=== PATIENT | male | born 1930 | race Caucasian/White ===

== ENCOUNTER 2019-07-20 15:43 | Emergency (ER) | payer MEDICARE ==
[~2019-07-20 15:43] MED LIST: HUMAN PROTHROMBIN COMPLX 500 UNIT/16 ML VIAL IV ONE
[2019-07-20] MEDS ORDERED: DIPH,PERTUS(ACELL)TETVAC-LF 0.5 ML VIAL IM ONE (15:49)
[2019-07-20] MEDS ORDERED: SODIUM CHLORIDE 0.9% 500 ML 500 ML IV STA (15:49)
--- NOTE | 2019-07-20 15:59 | ED ---
General Adult HPI - General Stated complaint: Fall Time Seen by Provider: 07/20/19 15:43 Source: patient, RN notes reviewed, old records reviewed - History of Present Illness Initial comments: This is an 88-year-old male who presents emergency Department patient is on Coumadin. Patient was coming out of a building and fell down 3 steps and hit his head on the cement pillar. Patient states he murmurs, have a building in the next he knows people were around him so it does seem as though the patient has lost consciousness. Patient complains of a mild headache at this time he denies any neck pain but he is in a c-collar. EMS stated there was about a 4 inch laceration to the scalp with quite a bit of bleeding. Patient states there is a little bit of rib pain on the lateral left rib cage at about ribs 8 and 9. Patient denies any difficulty breathing first breath per patient denies any back pain. Patient has any abdominal pain. Patient denies any extremity pain. - Related Data Allergies Allergy/AdvReac Type Severity Reaction Status Date / Time No Known Allergies Allergy Verified 07/20/19 16:33 Review of Systems ROS Statement: Those systems with pertinent positive or pertinent negative responses have been documented in the HPI. ROS Other: All systems not noted in ROS Statement are negative. General Exam - General Exam Comments Initial Comments: GENERAL: Patient is well-developed and well-nourished. Patient is nontoxic and well- hydrated and is in mild distress. ENT: Neck is soft and supple. No significant lymphadenopathy is noted. Oropharynx is clear. Moist mucous membranes. Neck has full range of motion without eliciting any pain. EYES: The sclera were anicteric and conjunctiva were pink and moist. Extraocular movements were intact and pupils were equal round and reactive to light. Eyelids were unremarkable. PULMONARY: Unlabored respirations. Good breath sounds bilaterally. No audible rales rhonchi or wheezing was noted. CARDIOVASCULAR: There is a regular rate and rhythm without any murmurs gallops or rubs. ABDOMEN: Soft and nontender with normal bowel sounds. SKIN: Skin is clear with no lesions or rashes and otherwise unremarkable. NEUROLOGIC: Patient is alert and oriented x3. Cranial nerves II through XII are grossly intact. Motor and sensory are also intact. Normal speech, volume and content. Symmetrical smile. MUSCULOSKELETAL: Normal extremities with adequate strength and full range of motion. No lower extremity swelling or edema. No calf tenderness. LYMPHATICS: No significant lymphadenopathy is noted PSYCHIATRIC: Normal psychiatric evaluation. Medical Decision Making - Medical Decision Making EKG shows atrial fibrillation with occasional PVC at 86 bpm QRS is 160 QT interval 442 QTC is 528. Patient's right bundle chino block. Computed tomography scan shows a subarachnoid hemorrhage as well as a contusion temporal lobe which appears to have some hemorrhagic component to it. Patient also has 2 areas of small pneumocephalus without any significant fracture noted. There is no midline shift. CT of the C-spine shows no acute fracture. Portable chest x-ray shows no abnormality. Portable pelvis shows no acute abnormality. I spoke to [facility] emergency Department accepted the transfer I transfer the patient. - Lab Data Result diagrams: 07/20/19 16:08 07/20/19 16:08 Lab Results 07/20/19 07/20/19 07/20/19 Range/Units 15:55 16:02 16:08 WBC 10.4 (3.8-10.6) k/uL RBC 4.79 (4.30-5.90) m/uL Hgb 13.8 (13.0-17.5) gm/dL Hct 43.4 (39.0-53.0) % MCV 90.6 (80.0-100.0) fL MCH 28.8 (25.0-35.0) pg MCHC 31.8 (31.0-37.0) g/dL RDW 13.6 (11.5-15.5) % Plt Count 243 (150-450) k/uL Neutrophils % 63 % Lymphocytes % 27 % Monocytes % 6 % Eosinophils % 2 % Basophils % 0 % Neutrophils # 6.6 (1.3-7.7) k/uL Lymphocytes # 2.7 (1.0-4.8) k/uL Monocytes # 0.6 (0-1.0) k/uL Eosinophils # 0.2 (0-0.7) k/uL Basophils # 0.0 (0-0.2) k/uL Sodium (137-145) mmol/L Potassium (3.5-5.1) mmol/L Chloride (98-107) mmol/L Carbon Dioxide (22-30) mmol/L Anion Gap mmol/L BUN (9-20) mg/dL Creatinine (0.66-1.25) mg/dL Est GFR (CKD-EPI)AfAm (>60 ml/min/1.73 sqM) Est GFR (CKD-EPI)NonAf (>60 ml/min/1.73 sqM) Glucose (74-99) mg/dL POC Glucose (mg/dL) 132 H (75-99) mg/dL POC Glu [employer] Grower ID Arron Jenkins Plasma Lactic Acid Gregg (0.7-2.0) mmol/L Calcium (8.4-10.2) mg/dL Total Bilirubin (0.2-1.3) mg/dL AST (17-59) U/L ALT (4-49) U/L Alkaline Phosphatase (38-126) U/L Total Creatine Kinase (55-170) U/L Total Protein (6.3-8.2) g/dL Albumin (3.5-5.0) g/dL Amylase (30-110) U/L Lipase (23-300) U/L Serum Alcohol mg/dL Blood Type Recheck No Previous Record Bld Type Recheck Status CABO Indicated Spec Expiration Date 07/23/2019 - 230707/20/19 07/20/19 07/20/19 Range/Units 16:08 16:08 16:08 WBC (3.8-10.6) k/uL RBC (4.30-5.90) m/uL Hgb (13.0-17.5) gm/dL Hct (39.0-53.0) % MCV (80.0-100.0) fL MCH (25.0-35.0) pg MCHC (31.0-37.0) g/dL RDW (11.5-15.5) % Plt Count (150-450) k/uL Neutrophils % % Lymphocytes % % Monocytes % % Eosinophils % % Basophils % % Neutrophils # (1.3-7.7) k/uL Lymphocytes # (1.0-4.8) k/uL Monocytes # (0-1.0) k/uL Eosinophils # (0-0.7) k/uL Basophils # (0-0.2) k/uL Sodium 138 (137-145) mmol/L Potassium 3.8 (3.5-5.1) mmol/L Chloride 102 (98-107) mmol/L Carbon Dioxide 26 (22-30) mmol/L Anion Gap 10 mmol/L BUN 22 H (9-20) mg/dL Creatinine 0.57 L (0.66-1.25) mg/dL Est GFR (CKD-EPI)AfAm >90 (>60 ml/min/1.73 sqM) Est GFR (CKD-EPI)NonAf >90 (>60 ml/min/1.73 sqM) Glucose 116 H (74-99) mg/dL POC Glucose (mg/dL) (75-99) mg/dL POC Glu [employer]drop[employer] Grower ID Plasma Lactic Acid Gregg 2.0 (0.7-2.0) mmol/L Calcium 9.7 (8.4-10.2) mg/dL Total Bilirubin 3.2 H (0.2-1.3) mg/dL AST 31 (17-59) U/L ALT 14 (4-49) U/L Alkaline Phosphatase 86 (38-126) U/L Total Creatine Kinase 57 (55-170) U/L Total Protein 7.4 (6.3-8.2) g/dL Albumin 4.5 (3.5-5.0) g/dL Amylase 63 (30-110) U/L Lipase 96 (23-300) U/L Serum Alcohol <10 mg/dL Blood Type Recheck Bld Type Recheck Status Spec Expiration Date Critical Care Time Critical Care Time: Yes Total Critical Care Time: 35 Disposition Clinical Impression: Subarachnoid hemorrhage, Intracerebral hemorrhage, Pneumocephalus Disposition: OTHER INSTITUTION NOT DEFINED Referrals: Devaughn De Luna MD [Primary Care Provider] - 1-2 days Time of Disposition: 16:38 - Out of Hospital Transfer - Req. Specs Out of Hospital Transfer - Requested Specifics: Other Emergency Center ([facility])
--- NOTE | 2019-07-20 16:02 | XR ---
EXAMINATION TYPE: XR chest 1V portable DATE OF EXAM: 07/20/2019 HISTORY: Shortness of breath. COMPARISON: None. TECHNIQUE: Single view of the chest is submitted. FINDINGS: Demonstrated are scattered senescent parenchymal change. There is no evidence for focal infiltrate. Prominent perihilar interstitial markings may be on a application technician omar basis. Correlate clinically. The heart is enlarged without evidence for congestive failure. Hilar and mediastinal structures are within normal limits. Degenerative changes are seen of the dorsal spine. IMPRESSION: 1. Chronic changes without evidence for acute pulmonary disease.
--- NOTE | 2019-07-20 16:05 | XR ---
EXAMINATION TYPE: XR pelvis AP view DATE OF EXAM: 07/20/2019 CLINICAL HISTORY: pain TECHNIQUE: Single view the pelvis is submitted. FINDINGS: No evidence for fracture, dislocation or bony lesion. Joint spaces are mildly narrowed. SI joints appear symmetric. IMPRESSION: 1. No acute fracture or dislocation seen. ICD 10 NO FRACTURE, INITIAL EVALUATION
[2019-07-20 16:08] LABS: Glucose,Whole Blood 132 mg/dL (75-99)
[2019-07-20 16:14] LABS: Basophils % (A) 0 %; Eosinophils # (A) 0.2 k/uL (0-0.7); Eosinophils % (A) 2 %; HCT 43.4 % (39.0-53.0); HGB 13.8 gm/dL (13.0-17.5); Lymphocytes # (A) 2.7 k/uL (1.0-4.8); Lymphocytes % (A) 27 %; MCH 28.8 pg (25.0-35.0); MCHC 31.8 g/dL (31.0-37.0); MCV 90.6 fL (80.0-100.0); Mean Platelet Volume 9.7; Monocytes # (A) 0.6 k/uL (0-1.0); Monocytes % (A) 6 %; Neutrophils # (A) 6.6 k/uL (1.3-7.7); Neutrophils % (A) 63 %; Platelet Count 243 k/uL (150-450); RBC 4.79 m/uL (4.30-5.90); RDW 13.6 % (11.5-15.5); WBC 10.4 k/uL (3.8-10.6)
[2019-07-20 16:22] LABS: Creatine Kinase 57 U/L (55-170)
[2019-07-20 16:24] LABS: ALT 14 U/L (4-49); AST 31 U/L (17-59); African American GFR (CKD) >90 (>60 ml/min/1.73 sqM); Albumin 4.5 g/dL (3.5-5.0); Alcohol <10 mg/dL; Alkaline Phosphatase 86 U/L (38-126); Amylase 63 U/L (30-110); Anion Gap 10 mmol/L; Blood Urea Nitrogen 22 mg/dL (9-20); Calcium 9.7 mg/dL (8.4-10.2); Carbon Dioxide 26 mmol/L (22-30); Chloride 102 mmol/L (98-107); Glucose 116 mg/dL (74-99); Non-African American GFR(CKD) >90 (>60 ml/min/1.73 sqM); Potassium 3.8 mmol/L (3.5-5.1); Sodium 138 mmol/L (137-145); Total Bilirubin 3.2 mg/dL (0.2-1.3); Total Protein 7.4 g/dL (6.3-8.2)
--- NOTE | 2019-07-20 16:32 | CT ---
EXAMINATION TYPE: CT brain manjula wo con DATE OF EXAM: 07/20/2019 COMPARISON: None HISTORY: Fall today. Trauma. CT DLP: [address] of the brain was performed. The ventricles, basal cisterns and sulci overlying the cerebral convexities demonstrate enlargement. Small subarachnoid hemorrhage identified right frontal lobe axial image 36 of 60. This may be posttra umatic in nature. Small contusive hemorrhage right temporal lobe measuring 7.9 mm. There is decreased attenuation about the periventricular white matter and deep white matter of both c erebral hemispheres, compatible with chronic small vessel ischemia. No mass effects are seen. If symptoms persist consider MRI. While the calvarium appears to be intact there is a focus or 2 of pneumocephalus identified posterior to the left portion of the frontal sinus seen best on axial image 18 of 60. There is also a focus of air superior to the left globe. Displaced fracture not appreciated. There is evidence of hyperdense material within the sphenoid sinus which may reflect chronic sinusitis or hemorrhagic contents. Simil ar findings are seen within the left frontal sinus. Left frontal and temporal scalp hematoma and lace ration. IMPRESSION: 1. Small subarachnoid hemorrhage identified right frontal lobe axial image 36 of 60. This may be post traumatic in nature. Small contusive hemorrhage right temporal lobe measuring 7.9 mm. No midline shif t. 2. Noted are 2 foci of pneumocephalus posterior to the left frontal sinus without visible fracture. T here is also focus of air superior to the left globe. Hyperdense material within the left frontal sin us and sphenoid sinus may reflect occult fracture. CT Cervical Spine: Unenhanced CT of the cervical spine was performed with bone and soft tissue window settings submitted . Coronal and sagittal reconstruction is obtained. There is normal alignment and prevertebral soft tissues. No evidence for acute cervical fracture . Scattered degenerative disc disease and spondylosis. Biapical scarring. IMPRESSION: 1. No evidence for acute fracture or subluxation of the cervical spine.
[2019-07-20 16:34] LABS: Troponin I <0.012 ng/mL (0.000-0.034)
[2019-07-20] MEDS ORDERED: PHYTONADIONE 10 MG in SODIUM CHLORIDE 0.9% 50 ML IVPB STA (16:38)
[2019-07-20 16:39] LABS: INR 3.7 (<1.2); Partial Thromboplastin Time 31.5 sec (22.0-30.0); Prothrombin Time 36.3 sec (9.0-12.0)
[2019-07-20] MEDS ORDERED: Kcentra PER PHARMACY 1 EACH MISC MISCELLANE PRN (16:50)
[2019-07-20] MEDS ORDERED: EMPTY BAG 1 BAG with HUMAN PROTHROMBIN COMPLX 2,236 UNIT IV ONE (17:15)
== END 2019-07-20 18:45 | disposition other institution (70) ==
LOC: EC 15:43
DX: S06.6X9A Traumatic subarachnoid hemorrhage with loss of consciousness of unspecified duration, initial encounter (principal); S01.01XA Laceration without foreign body of scalp, initial encounter; G93.89 Other specified disorders of brain; I48.91 Unspecified atrial fibrillation; I49.3 Ventricular premature depolarization; Z23 Encounter for immunization; Z79.01 Long term (current) use of anticoagulants; W10.9XXA Fall (on) (from) unspecified stairs and steps, initial encounter
CPT/HCPCS: 36415; 93005; 86900; 86901; 80053; 82150; 82550; 82553; 83605; 83690; 84484; 85025; 85610; 85730; 86850; 72170; 71045; 72125; 70450; 90715; 99291; 96365; 96375; 90471; 96368; G0480; J3430; J0690; C9132; 80320